=== PATIENT | female | born 1965 | race African-American/Black ===

== ENCOUNTER 2016-02-19 05:50 | Emergency (ER) | payer OTHER ==
[2016-02-19] MEDS ORDERED: HYDROmorphone 1 mg/mL 1mL Syr IVP STA (06:12)
--- NOTE | 2016-02-19 06:12 | ED Physician Chart ---
Chief Complaint/HPI - Patient Information Date Seen:: 02/19/16 Time Seen:: 06:00 Chief Complaint:: Abdominal pain since about 5 am today. History of Present Illness:: Brought in by ambulance because of acute onset of lower abdominal pain since about 5 am today. Pain is characterized as contant, localized, sharp and crampy. No known relieving or aggravating factors. Pt has had recurrent nausea/ vomiting with vomitus consists of partially digested food and gastric content. No hematemesis. Last BM yesterday, normal in color and consistency. No hematochezia or melena. Pt denies any gross hematuria, dysuria, frequency or urgency with urination. No vaginal bleeding or discharge. Allergies:: see Nurse Note. Vitals:: see Nurse Note. Historian:: Patient Family MD/PCP:: Dr. Felipe LMP:: 02/01/16 Review:: Nurse's Note Reviewed Review of Systems - Review of Systems Skin: No skin lesions, No rash, No bruising Eyes: No loss of vision, No pain, No diplopia ENT: No earache, No nasal drainage, No sore throat, No tinnitus Neck: No neck pain, No swelling, No thyromegaly, No stiffness, No mass noted Cardio Vascular: No chest pain, No palpitations, No PND, No orthopnea, No edema Pulmonary: No SOB, No cough, No sputum, No wheezing GI: Nausea, Vomiting, No diarrhea, Pain, No melena, No hematochezia, No constipation, No hematemesis G/U: No dysuria, No frequency, No hematuria Refinish Technician: No vaginal discharge, No abnormal vaginal bleed Musculoskeletal: No bone or joint pain, No back pain, No muscle pain Endocrine: No polyuria, No polydipsia Psychiatric: No prior psych history Past Medical History - Past Medical History Past Medical History: PUD/GERD, Other (? Chronic vomiting syndrome.) Family History: None Social History: Non Smoker, No Alcohol, No Drug Use, Single, Other (lives with her sister.) Employment:: unemployed. Surgical History: Cholecystectomy ('), (x 3 with last one in .), other (Bilateral bunionectomies . Tummy tuck . L knee arthoscopic surgery , Neck surgeries and with fusion C4, 5, 6, 7. R knee arthoscopic surgery '12.) Psychiatricy History: None Medication: Reviewed Family Medical History - Family Member Sister Ethnicity: Non- Living Status: Still Living Physical Exam - Physical Examination General/Constitutional: Awake, Well-developed, well-nourished, Alert, Non-toxic appearing Other Gen/Cons comments:: Breathes comfortably, speaks clearly. Pt is in severe distress due to abdominal pain. Head: Atraumatic Eyes: Lids, conjuctiva normal, PERRL, EOMI Other Eyes comments:: Anicteric sclera. Skin: Nl inspection, No rash, No skin lesions, No ecchymosis, Well hydrated, No lymphadenopathy ENMT: Oropharynx nl Neck: Nontender, Full ROM w/o pain, No JVD, No nuchal rigidity, No mass, No stridor Respiratory: Nl effort/Exclusion, Clear to Auscultation, No Wheeze/Rhonchi/Rales Cardio Vascular: RRR, No murmur, gallop, rubs, NL S1 S2 GI: No organomegaly, No hernia, Normal BS's, Nondistended, No mass/bruits, No McBurney tenderness Other GI comments:: Diffuse tenderness in lower abdomen. Mild voluntary guarding. No rebound. Pt declined rectal exam despite indications, related benefits and risks had been well explained. : No CVA tenderness Other comments:: Pt declined pelvic exam even after she had been well explained about indications , and related benefits and risks. Extremities: No tenderness or effusion, Full ROM, normal strength in all extremities, No edema, Normal digits & nails Neuro/Psych: Alert/oriented (oriented x 3), No focal deficits ED Septic Shock - . Is Septic Shock (SBP<90, OR Lactate>4 mmol\L) present?: No Reassessment (Disposition) - Reassessment Reassessment:: 0710 Pt remains stable and appears to be comfortable now. Case has been signed off to Dr. Cortes for continued care. - Diagnosis Diagnosis:: Abdominal pain
[2016-02-19] MEDS ORDERED: HYDROmorphone 1 mg/mL 1mL Syr ONE ×2 (06:15→07:31)
[2016-02-19 07:01] LABS: % BASOPHILS 0.5 % (0.0-2.0); % EOSINOPHILS 0.4 % (0.0-5.0); % LYMPHOCYTES 15.1 % (20.0-50.0); % MONOCYTES 2.3 % (2.0-10.0); % NEUTROPHILS 81.7 % (40.0-80.0); HEMATOCRIT 36.5 % (35.0-45.0); HEMOGLOBIN 12.3 gm/dL (11.7-15.5); MEAN CELL VOLUME 83.1 fl (81-100); MEAN CORPUSCULAR HEMOGLOBIN 27.9 pg (27.0-31.0); MEAN CORPUSCULAR HGB CONC 33.6 pg (28.0-36.0); MEAN PLATELET VOLUME 8.4 fl; NEUTROPHILE ABSOLUTE 8.7 Th/cmm (1.8-8.0); PLATELET COUNT 166 Th/cmm (150-400); RED BLOOD COUNT 4.39 Mil/cmm (3.80-5.10); RED CELL DISTRIBUTION WIDTH 12.4 % (11.5-20.0); WHITE BLOOD COUNT 10.6 Th/cmm (4.8-10.8)
[2016-02-19 07:09] LABS: INR 1.14 (0.5-1.4); PROTHROMBIN TIME (TEST) 11.4 SECONDS (9.5-11.5)
[2016-02-19 07:12] LABS: ALB/GLOB RATIO 1.4 (1.0-1.8); ALKALINE PHOSPHATASE 39 U/L (34-104); AMYLASE SERUM 66 U/L (29-103); ANION GAP 12.2 (7.0-16.0); BILIRUBIN,TOTAL 0.5 mg/dL (0.3-1.0); BUN - UREA NITROGEN 10 mg/dL (7-25); BUN/CREATININE RATIO 12.5; CALCIUM SERUM 9.6 mg/dL (8.6-10.3); CHLORIDE 107 mEq/L (98-107); CREATININE - SERUM 0.8 mg/dL (0.6-1.2); GLUCOSE 137 mg/dL (70-105); LIPASE 20 U/L (11-82); POTASSIUM SERUM 3.2 mEq/L (3.5-5.1); SGOT 14 U/L (13-39); SGPT/ALT 9 U/L (7-52); SODIUM SERUM 138 mEq/L (136-145)
[2016-02-19] MEDS ORDERED: Prochlorperazine 5 mg/mL 2mL Vial IVP STA (07:27)
[2016-02-19] MEDS ORDERED: Sodium Chloride 0.9% 1,000 ML IV ONE (07:27)
[2016-02-19] MEDS ORDERED: HYDROmorphone 2 mg/mL 1mL Vial IVP STA (07:27)
[2016-02-19] MEDS ORDERED: Dexamethasone Sodium Phos 4 mg/mL Vial IVP STA (07:28)
[2016-02-19] MEDS ORDERED: Prochlorperazine 5 mg/mL 2mL Vial ONE (07:31)
[2016-02-19] MEDS ORDERED: Dexamethasone Sodium Phos 4 mg/mL Vial ONE (07:41)
[2016-02-19] MEDS ORDERED: Potassium Chloride 20 mEq ER Tab PO ONE ×2 (08:12→08:14)
--- NOTE | 2016-02-19 09:37 | Diagnostic Imaging Report ---
CT abdomen and pelvis without intravenous contrast Indication: Lower abdominal pain Comparison: None, Technique: Axial images were obtained from the lung bases to the bilateral proximal femurs without IV contrast. Coronal reconstructions were made. total DLP: 471, CTDI9.5 FINDINGS: Atelectatic changes lung bases are noted. Assessment of the solid organs is limited due to lack of IV contrast. A 7 mm low-density lesion of the left lobe of the liver is noted to small to characterize. The patient is status post cholecystectomy. No focal splenic lesions. There may be a surgical clip along the splenic hilum. No evidence of focal pancreatic lesions. No focal adrenal lesions. No evidence of hydronephrosis or focal renal lesions. Minimal diverticulosis is noted. No evidence of diverticulitis. Fluid-filled appendix is noted without evidence of surrounding inflammatory change. Multiple fluid-filled loops of small bowel are noted. Fluid-filled colon is also noted. High density seen within the stomach which may represent ingested oral contrast or other material. Trace free fluid is seen within the pelvis. No evidence of free air. Osseous structures demonstrate no acute abnormalities. Degenerative changes of lumbar spine are noted with multilevel disc bulging. IMPRESSION: No evidence of bowel obstruction. Fluid-filled appendix. No evidence of acute appendicitis. Multiple fluid-filled loops of small bowel and additional fluid-filled large bowel. Findings may be due to underlying infectious or inflammatory process. Minimal diverticulosis. No evidence of diverticulitis. Trace amount of free fluid in the pelvis Evidence of prior cholecystectomy.
== END 2016-02-19 09:02 | disposition home or self-care (01) ==
LOC: ER 05:50
DX: R10.30 Lower abdominal pain, unspecified (principal); G43.A0 Cyclical vomiting, in migraine, not intractable; R03.0 Elevated blood-pressure reading, without diagnosis of hypertension; E87.6 Hypokalemia; Z90.49 Acquired absence of other specified parts of digestive tract; Z88.1 Allergy status to other antibiotic agents; Z88.8 Allergy status to other drugs, medicaments and biological substances
CPT/HCPCS: 99285; 74176; 96375; 96374; 96376; 36415; 85025; 85610; 82150; 83690; 80053; J2405; J1100; J0780; J1170; J7030

== ENCOUNTER 2016-02-19 13:02 | Emergency (ER) | payer OTHER ==
[2016-02-19] MEDS ORDERED: Dexamethasone Sodium Phos 4 mg/mL Vial IVP STA (13:10)
--- NOTE | 2016-02-19 13:10 | ED Physician Chart ---
Chief Complaint/HPI - Patient Information Date Seen:: 02/19/16 Time Seen:: 13:05 Chief Complaint:: nausea History of Present Illness:: 50-year-old female with history of cyclic vomiting syndrome who was seen here earlier today. Complains of acute, severe, constant, nausea that happened about 20 minutes prior to arrival to the ER after she woke up from a nap after being discharged earlier today. Denies any vomiting. Came to the ER she wanted to "get ahead of the vomiting". Has a history of heavy prescription narcotic use. Denies abdominal pain. Allergies:: Allergies Allergy/AdvReac Type Severity Reaction Status Date / Time erythromycin base Allergy Verified 02/19/16 06:08 metoclopramide [From Reglan] Allergy Verified 02/19/16 06:08 Sulfa (Sulfonamide Allergy Verified 02/19/16 06:08 Antibiotics) tetracycline Allergy Verified 02/19/16 06:08 Historian:: Patient Review:: Nurse's Note Reviewed Review of Systems - Review of Systems Other: Complete system review otherwise unremarkable except as noted in HPI. Past Medical History - Past Medical History Past Medical History: Other (cyclic vomiting syndrome, chronic pain syndrome) Family History: None Social History: Non Smoker, No Alcohol, No Drug Use, Other (lives with family) Surgical History: None Psychiatricy History: None Medication: Reviewed Family Medical History - Family Member Sister History Unknown: Yes Ethnicity: Non- Living Status: Still Living Physical Exam - Physical Examination Other:: INITIAL VITAL SIGNS: Reviewed by me GENERAL: Alert and interactive. No acute distress HEAD: Head is normocephalic and atraumatic EYES: EOMI. . No scleral icterus. No conjunctival injection ENT: Moist mucous membranes. NECK: Supple. No masses. Full range of motion RESPIRATORY: No tachypnea. Clear breath sounds bilaterally. No wheezing, rales, or rhonchi CV: Regular rate and rhythm. No murmurs, rubs, or gallops ABDOMEN: Soft, non-distended, non-tender. No guarding. No rebound. No masses. EXTREMITIES: No deformity. No cyanosis. No edema. SKIN: Warm and dry. No obvious rashes. NEUROLOGIC: Alert and oriented. Face is symmetric. Speech is normal. Moves all extremities equally. Motor and sensory distally intact. ED Septic Shock - . Is Septic Shock (SBP<90, OR Lactate>4 mmol\\L) present?: No Reassessment (Disposition) - Reassessment Reassessment:: The patient's blood pressure was elevated (>120/80) but appears stable without evidence of hypertensive emergency or urgency. The patient was counseled about the risks hypertension urged to pursue outpatient monitoring and therapy within a week with her primary care physician. Patient presented with acute nausea but no vomiting. Patient was evaluated this morning as well. Her Labs and CT scan were done and they were essentially unremarkable. She is a known and admitted heavy prescription narcotic user. On the earlier evaluation in the ER she received large amounts of IV narcotics. At this visit we have provided multiple IV antiemetics and IV fluids. Her symptoms did show some improvement. At this time we will discharge to home. She can follow up with her primary care physician in one to 2 days. Gave return to ER precautions. Patient understands and agrees with the plan. Reassessment Condition:: Improved - Diagnosis Diagnosis:: Severe nausea Cyclic vomiting syndrome Elevated blood pressure without the diagnosis hypertension - Aftercare/Follow up Instructions Aftercare/Follow-Up Instructions:: Counseled pt regarding lab results/diagnosis & need follow up, Refer to Discharge Instructions - Patient Disposition Time:: 14:34 Condition at Disposition:: Improved ED Discharge Plan - Patient Disposition Admit/Discharge/Transfer: PT DISCHARGED HOME Condition at Disposition: Improved Instructions: Nausea, Adult
[2016-02-19] MEDS ORDERED: Prochlorperazine 5 mg/mL 2mL Vial IVP STA (13:11)
[2016-02-19] MEDS ORDERED: Sodium Chloride 0.9% 1,000 ML IV ONE (13:15)
[2016-02-19] MEDS ORDERED: Prochlorperazine 5 mg/mL 2mL Vial ONE (13:21)
[2016-02-19] MEDS ORDERED: Dexamethasone Sodium Phos 4 mg/mL Vial ONE (13:22)
== END 2016-02-19 16:06 | disposition home or self-care (01) ==
LOC: ER 13:02
DX: G43.A0 Cyclical vomiting, in migraine, not intractable (principal); R03.0 Elevated blood-pressure reading, without diagnosis of hypertension; Z88.1 Allergy status to other antibiotic agents; Z88.2 Allergy status to sulfonamides; Z88.8 Allergy status to other drugs, medicaments and biological substances
CPT/HCPCS: 99284; 96374; 96375; 96372; J2405; J1100; J0780; J7030; Z7502